=== PATIENT | female | born 1990 | race Two or more races ===

== ENCOUNTER 2019-09-13 13:26 | Emergency (ER) | payer OTHER ==
[~2019-09-13] VITALS: Ht 162.6 cm; Wt 56.2 kg
[2019-09-13 13:49] VITALS: BP 116/57
--- NOTE | 2019-09-13 13:54 | NUR ---
ABD PAIN X 2 DAYS + NAUSEA -DIARRHEA. PT AAOX4, VSS. RR EVEN & UNLABORED. DENIES CP, SOB, DIZZINESS @ THIS TIME. AWAITING EVAL BY LORENZO/PA. WILL CONT TO MONITOR.
== END 2019-09-13 14:53 | disposition home or self-care (01) ==
LOC: ER 13:32
DX: M79.18 Myalgia, other site (principal); M79.652 Pain in left thigh; G89.29 Other chronic pain; Z93.3 Colostomy status; Z85.038 Personal history of other malignant neoplasm of large intestine; Z98.890 Other specified postprocedural states; Z88.6 Allergy status to analgesic agent

== ENCOUNTER 2020-05-07 16:41 | Emergency (ER) | payer OTHER ==
[~2020-05-07] VITALS: Ht 160 cm; Wt 56.2 kg
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
--- NOTE | 2020-05-07 16:55 | NUR ---
DR CASTILLO AT BEDSIDE FOR EVAL.
[2020-05-07] MEDS ORDERED: ONDANSETRON HCL/PF 4 MG/2 ML VIAL IVP ONE (17:00)
[2020-05-07] MEDS ORDERED: MORPHINE SULFATE INJ 2 MG/ML DISP.SYRIN IV ONE (17:00)
[2020-05-07] MEDS ORDERED: IV NS 0.9% 1,000 ML BAG IV ONE (17:00)
--- NOTE | 2020-05-07 17:10 | NUR ---
IV LINE STARTED BLOOD DRAWN AND SENT TO LAB.
[2020-05-07 17:18] LABS: EOSINOPHILS % (AUTO) 1.5 % (0.0-6.0); HEMATOCRIT 25 % (33-45); HEMOGLOBIN 8.2 g/dL (11.5-14.8); LYMPHOCYTES # (AUTO) 1.3 /CMM (0.8-4.8); LYMPHOCYTES % (AUTO) 29.4 % (20.0-44.0); MEAN CORPUSCULAR HGB CONC 33 g/dl (31.0-36.0); MEAN CORPUSCULAR VOLUME 83 fL (82-100); MONOCYTES # (AUTO) 0.3 /CMM (0.1-1.30); MONOCYTES % (AUTO) 6.7 % (2.0-12.0); NEUTROPHILS # (AUTO) 2.7 /CMM (1.8-8.9); NEUTROPHILS % (AUTO) 61.4 % (43.0-81.0); PLATELET COUNT (AUTO) 419 /CMM (150-450); RED BLOOD CELL COUNT(AUTO) 3.02 MIL/uL (4.0-5.2); WHITE BLOOD COUNT (AUTO) 4.3 K/uL (4.3-11.0)
[2020-05-07] MEDS ORDERED: ONDANSETRON HCL/PF 4 MG/2 ML VIAL ONE (17:18)
[2020-05-07] MEDS ORDERED: MORPHINE SULFATE INJ 2 MG/ML DISP.SYRIN ONE (17:18)
[2020-05-07 17:46] LABS: APPEARANCE,URINE Clear (CLEAR); BILIRUBIN,URINE Negative (NEGATIVE); BLOOD, URINE Large Ery/uL (NEGATIVE); COLOR,URINE Light yellow (YELLOW); KETONES,URINE Negative (NEGATIVE); LEUKOCYTE ESTERASE ,URINE Small (NEGATIVE); NITRITE, URINE Negative (NEGATIVE); PH,URINE 6.5 (5.0-8.0); PROTEIN,URINE Negative (NEGATIVE); UGLUCOSE Negative (NEGATIVE); UROBILINOGEN,URINE 0.2 EU/dL (0.2)
[2020-05-07 18:04] LABS: SQUAMOUS EPITHELIAL CELL,UR Many /HPF (None Seen)
[2020-05-07 18:05] LABS: BACTERIA,URINE Few /HPF (None Seen)
[2020-05-07 18:05] LABS: CREATININE 0.7 mg/dL (0.6-1.3); POTASSIUM 4.2 mmol/L (3.5-5.1)
[2020-05-07 18:14] LABS: ALBUMIN 3.3 g/dL (3.4-5.0); BILIRUBIN,TOTAL 0.2 mg/dL (0.2-1.0); TOTAL PROTEIN, SERUM 8.1 g/dL (6.4-8.2)
[2020-05-07] MEDS ORDERED: CEFTRIAXONE 1 G in IV D5W 50 ML IV ONE (18:30)
[2020-05-07] MEDS ORDERED: CEFTRIAXONE 1GM BAG (ER ONLY) 50 ML IV ONE (18:34)
[2020-05-07] MEDS ORDERED: IV NS 0.9% 1,000 ML IV ONE (19:00)
--- NOTE | 2020-05-07 19:30 | NUR ---
REPORT GIVEN TO COKE DRAWER HAND NURSE KALEB FOR LARS.
--- NOTE | 2020-05-07 19:31 | NUR ---
REPORT RECEIVED FROM MENA WHITLEY FOR LARS
[2020-05-07 19:52] VITALS: BP 101/64
--- NOTE | 2020-05-07 19:52 | NUR ---
Patient discharged to home in stable condition. Written and verbal after care instructions given. Patient verbalizes understanding of instruction.
== END 2020-05-07 19:53 | disposition home or self-care (01) ==
LOC: ER 16:45
DX: N39.0 Urinary tract infection, site not specified (principal); E86.0 Dehydration; D64.9 Anemia, unspecified; Z98.890 Other specified postprocedural states; Z90.89 Acquired absence of other organs; Z90.49 Acquired absence of other specified parts of digestive tract; Z88.6 Allergy status to analgesic agent
CPT/HCPCS: 36415; 80048; 80076; 81001; 83690; 84702; 85025; 96361; 96365; 96375; 99284; J0696 ×2; J2270; J2405; J7030 ×2; J7060; 81000-TC; 87086-TC

== ENCOUNTER 2020-11-28 11:41 | Emergency (ER) | payer OTHER ==
[~2020-11-28] VITALS: Ht 162.6 cm; Wt 54.4 kg
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
--- NOTE | 2020-11-28 12:43 | NUR ---
DR JONES AT BEDSIDE FOR EVAL
[2020-11-28] MEDS ORDERED: ONDANSETRON HCL/PF 4 MG/2 ML VIAL ONE (13:28)
--- NOTE | 2020-11-28 14:05 | NUR ---
patient not able to provide urine sample. made MD aware. offered straight catheter, patient refused
[2020-11-28] MEDS: IV NS 0.9% 1,000 ML BAG IV ONE (14:06)
[2020-11-28] MEDS: ONDANSETRON HCL/PF 4 MG/2 ML VIAL IVP ONE (14:07)
[2020-11-28 14:09] LABS: BASOPHILS # (AUTO) 0.1 /CMM (0.0-0.2); EOSINOPHILS % (AUTO) 0.3 % (0.0-6.0); HEMATOCRIT 30 % (33-45); HEMOGLOBIN 9.4 g/dL (11.5-14.8); LYMPHOCYTES # (AUTO) 1.5 /CMM (0.8-4.8); LYMPHOCYTES % (AUTO) 15.4 % (20.0-44.0); MEAN CORPUSCULAR HGB CONC 32 g/dl (31.0-36.0); MEAN CORPUSCULAR VOLUME 82 fL (82-100); MONOCYTES # (AUTO) 0.5 /CMM (0.1-1.30); MONOCYTES % (AUTO) 4.8 % (2.0-12.0); NEUTROPHILS # (AUTO) 7.4 /CMM (1.8-8.9); NEUTROPHILS % (AUTO) 78.5 % (43.0-81.0); PLATELET COUNT (AUTO) 528 /CMM (150-450); RED BLOOD CELL COUNT(AUTO) 3.65 MIL/uL (4.0-5.2); WHITE BLOOD COUNT (AUTO) 9.5 K/uL (4.3-11.0)
[2020-11-28] MEDS ORDERED: MORPHINE SULFATE INJ 4 MG/ML DISP.SYRIN ONE ×2 (14:10→15:54)
[2020-11-28] MEDS ORDERED: IOHEXOL-300 100 ML VIAL IV ONE (14:15)
[2020-11-28] MEDS ORDERED: IV NS 0.9% 250 ML IV ONE (14:15)
[2020-11-28] MEDS: MORPHINE SULFATE INJ 2 MG/ML DISP.SYRIN IV ONE (14:16)
[2020-11-28 14:25] LABS: CALCIUM, SERUM 9.6 mg/dL (8.5-10.1); CREATININE 1.1 mg/dL (0.6-1.3)
[2020-11-28 14:30] LABS: ALBUMIN 4.1 g/dL (3.4-5.0); BILIRUBIN,DIRECT 0.2 mg/dL (0.0-0.2); BILIRUBIN,TOTAL 0.8 mg/dL (0.2-1.0); TOTAL PROTEIN, SERUM 9.4 g/dL (6.4-8.2)
[2020-11-28] MEDS: MORPHINE SULFATE INJ 10 MG/ML DISP.SYRIN IV ONE (16:02)
[2020-11-28] MEDS ORDERED: diphenhydrAMINE HCL 25 MG CAPSULE ONE (16:05)
[2020-11-28] MEDS: diphenhydrAMINE HCL 25 MG CAPSULE PO ONE (16:07)
--- NOTE | 2020-11-28 16:09 | NUR ---
IV removed. Catheter intact and site benign. Pressure and 4x4 applied to site. No bleeding noted.Patient discharged to home in stable condition. Written and verbal after care instructions given. Patient verbalizes understanding of instruction.
[2020-11-28 16:36] VITALS: BP 110/67
== END 2020-11-28 16:21 | disposition home or self-care (01) ==
LOC: ER 11:47
DX: R10.84 Generalized abdominal pain (principal); R10.10 Upper abdominal pain, unspecified; K92.0 Hematemesis; D64.9 Anemia, unspecified; Z98.890 Other specified postprocedural states; Z88.6 Allergy status to analgesic agent; Z85.038 Personal history of other malignant neoplasm of large intestine; Y08.89XA Assault by other specified means, initial encounter; Y93.89 Activity, other specified; Y92.89 Other specified places as the place of occurrence of the external cause; Y99.8 Other external cause status
CPT/HCPCS: 36415; 71045; 71260; 74177; 80048; 80076; 80320; 83690; 85025; 93005; 96361; 96374; 96375; 96376; 99285; J2270 ×2; J2405; J7030; J7050; Q0163; Q9967; G0480

== ENCOUNTER 2021-09-28 14:38 | Inpatient (IN) | payer OTHER ==
[~2021-09-28] VITALS: Ht 162.6 cm; Wt 52.4 kg
[2021-09-28] MEDS ORDERED: ONDANSETRON HCL/PF 4 MG/2 ML VIAL ONE ×2 (14:51→15:07)
[2021-09-28] MEDS ORDERED: PANTOPRAZOLE 40 MG VIAL ONE ×2 (14:51→15:07)
[2021-09-28] MEDS ORDERED: PANTOPRAZOLE 40 MG VIAL IV ONE (15:00)
[2021-09-28] MEDS ORDERED: IV NS 0.9% 1,000 ML BAG IV ONE (15:00)
[2021-09-28] MEDS ORDERED: ONDANSETRON HCL/PF 4 MG/2 ML VIAL IVP ONE (15:00)
--- NOTE | 2021-09-28 15:03 | NUR ---
Line started on L ej g 20, blood drawn from line and sent to lab
[2021-09-28 15:12] LABS: BASOPHILS % (AUTO) 0.7 % (0.0-2.0); EOSINOPHILS % (AUTO) 1.2 % (0.0-6.0); HEMATOCRIT 33 % (33-45); HEMOGLOBIN 10.8 g/dL (11.5-14.8); LYMPHOCYTES # (AUTO) 2.1 K/uL (0.8-4.8); LYMPHOCYTES % (AUTO) 36.6 % (20.0-44.0); MEAN CORPUSCULAR HGB CONC 33 g/dl (31.0-36.0); MEAN CORPUSCULAR VOLUME 91 fL (82-100); MONOCYTES # (AUTO) 0.4 K/uL (0.1-1.30); MONOCYTES % (AUTO) 6.6 % (2.0-12.0); NEUTROPHILS # (AUTO) 3.1 K/uL (1.8-8.9); NEUTROPHILS % (AUTO) 54.9 % (43.0-81.0); PLATELET COUNT (AUTO) 269 K/uL (150-450); RED BLOOD CELL COUNT(AUTO) 3.57 MIL/uL (4.0-5.2); WHITE BLOOD COUNT (AUTO) 5.7 K/uL (4.3-11.0)
[2021-09-28 15:30] LABS: ALBUMIN 3.3 g/dL (3.4-5.0); BILIRUBIN,DIRECT 0.1 mg/dL (0.0-0.2); BILIRUBIN,TOTAL 0.3 mg/dL (0.2-1.0); CALCIUM, SERUM 8.4 mg/dL (8.5-10.1); CREATININE 1.1 mg/dL (0.6-1.3); TOTAL PROTEIN, SERUM 7.6 g/dL (6.4-8.2)
[2021-09-28] MEDS ORDERED: MORPHINE SULFATE INJ 2 MG/ML DISP.SYRIN IV ONE (15:30)
[2021-09-28 15:31] LABS: BILIRUBIN,URINE SMALL (NEGATIVE); COLOR,URINE YELLOW (YELLOW); LEUKOCYTE ESTERASE ,URINE NEGATIVE (NEGATIVE); NITRITE, URINE NEGATIVE (NEGATIVE); PROTEIN,URINE 30 mg/dl (NEGATIVE); UGLUCOSE NEGATIVE (NEGATIVE); UROBILINOGEN,URINE 0.2 EU/dL (0.2)
[2021-09-28 15:33] LABS: POTASSIUM 2.7 mmol/L (3.5-5.1)
[2021-09-28] MEDS ORDERED: MORPHINE SULFATE INJ 4 MG/ML DISP.SYRIN ONE (15:33)
[2021-09-28] MEDS ORDERED: POTASSIUM CL. PREMIX PERIPHER. 200 ML ONE (15:39)
[2021-09-28] MEDS ORDERED: diphenhydrAMINE HCL 50 MG/ML VIAL ONE (15:41)
[2021-09-28 15:45] LABS: BACTERIA,URINE None seen /HPF (None Seen); RBC,URINE 21-50 /HPF (0-2)
[2021-09-28] MEDS: POTASSIUM CL. PREMIX PERIPHER. 50 ML IV SCH ×4 (15:50→20:00)
[2021-09-28] MEDS ORDERED: IOHEXOL-300 100 ML VIAL IV ONE (15:55)
[2021-09-28] MEDS ORDERED: CT SWABBABLE VALVE TRANS SET 1 EA INFUS.SET MC ONE (15:55)
[2021-09-28] MEDS ORDERED: IV NS 0.9% 250 ML IV ONE (15:55)
[2021-09-28] MEDS ORDERED: diphenhydrAMINE HCL 50 MG/ML VIAL IV ONE (16:00)
[2021-09-28] MEDS ORDERED: OXYC1TAB8 MT (16:43)
[2021-09-28] MEDS ORDERED: PANT40TA2 PO (16:43)
[2021-09-28] MEDS ORDERED: SERT50TA12 PO (16:43)
[2021-09-28] MEDS ORDERED: HYDR4TAB57 PO (16:43)
[2021-09-28] MEDS ORDERED: ALPR0.5T8 MT (16:43)
--- NOTE | 2021-09-28 16:43 | NUR ---
covid swab done and sent to the lab
--- NOTE | 2021-09-28 16:59 | NUR ---
NOEL MEDRANO CALLED [phone] FAX IS [phone]
[2021-09-28] MEDS ORDERED: HYDROMORPHONE 1 MG/1 ML DISP.SYRIN IV ONE ×2 (17:00→20:00)
[2021-09-28] MEDS ORDERED: HYDROMORPHONE 1 MG/1 ML DISP.SYRIN ONE ×2 (17:10→19:52)
[2021-09-28 18:10] LABS: OCCULT BLOOD STOOL POSITIVE (NEGATIVE)
--- NOTE | 2021-09-28 18:11 | NUR ---
FAXED CLINICALS TO [facility] [phone]
--- NOTE | 2021-09-28 19:03 | NUR ---
MA[facility] CM WILL CALL US IN 30 MINS TO OFFER A BED OR AUTH TO ADMIT.
--- NOTE | 2021-09-28 19:12 | NUR ---
CALLED JENNY FOR READ.
--- NOTE | 2021-09-28 20:47 | NUR ---
recieved bed 322-1
--- NOTE | 2021-09-28 20:55 | NUR ---
REPORT GIVEN TO MENA LEMUS
--- NOTE | 2021-09-28 21:53 | NUR ---
PATIENT TRANSFERRED UNDER ACLS
[2021-09-28] MEDS ORDERED: ZOLPIDEM TARTRATE 5 MG TABLET PO PRN ×2 (22:00→22:30)
[2021-09-28] MEDS ORDERED: oxyCODONE/APAP (5/325 MG) 1 UDTAB TABLET PO PRN ×2 (22:00→22:30)
[2021-09-28] MEDS ORDERED: Potassium Chloride 20 MEQ in IV D5/ 0.9% NACL 1,000 ML IV PRN (22:00)
[2021-09-28] MEDS ORDERED: ONDANSETRON HCL/PF 4 MG/2 ML VIAL IV PRN ×2 (22:00→22:30)
[2021-09-28] MEDS ORDERED: POTASSIUM CHLORIDE 20 MEQ TAB.PRT.SR PO ONE ×2 (22:00→22:30)
[2021-09-28] MEDS ORDERED: MORPHINE SULFATE IR 15 MG TABLET PO PRN (22:00)
[2021-09-28] MEDS ORDERED: ACETAMINOPHEN 325 MG TABLET PO PRN ×2 (22:00→22:30)
[2021-09-28 22:30] VITALS: BP 93/46
[2021-09-28] MEDS ORDERED: Potassium Chloride 20 MEQ in IV D5/ 0.9% NACL 1,000 ML IV SCH (22:30)
[2021-09-28 23:00] VITALS: BP 93/46
[2021-09-28] MEDS ORDERED: IV PREMIX D5 NS + KCL 1,000 ML IV PRN (23:00)
[2021-09-28] MEDS: HYDROMORPHONE HCL 2 MG TABLET PO PRN (23:10)
[2021-09-28] MEDS ORDERED: IV PREMIX D5 1/2NS + KCL 1,000 ML IV PRN (23:45)
[2021-09-29] VITALS: BP 81/54
[2021-09-29] MEDS ORDERED: Potassium Chloride 20 MEQ in IV D5/0.45 NACL 1,000 ML IV SCH
[2021-09-29] MEDS ORDERED: IV PREMIX D5 1/2NS + KCL 1,000 ML IV ONE (00:54)
--- NOTE | 2021-09-29 05:04 | NUR ---
CLOSING NOTES: RECEIVED PATIENT AT 22:45 FROM THE ER MD ORDERED MORPHINE 4 MG PO FOR PAIN AND SHE STATED "MORPHINE DOESN'T WORK, CALL MY DOCTOR AND GET GET THE MEDICINE CHANGED TO DILAUDID 4 MG "I TAKE IT q 6 HOURS PO AT HOME" CALL MADE TO MD CELESTIN AND RECEIVED THE ORDER FOR DILAUDID 4 MG Q 6 HOURS PO. FIRST DOSE GIVEN AT 2300 FOR ABD PAIN. NOTED SHE TAKES CARE OF HER ILEOSTOMY. AT 5AM SHE WANTED ME TO CALL THE MD SHE WANTS DILAUDID IV EXPLAINED TO HER THE MD ORDERED MEDICINE TO GET HER THRU THE NIGHT AND DID ORDER PO NO IV SHE STARTED TO ESCALATE IN HER VOICE AND MANNERISMS WITH ANGER. INSTRUCTED I CAN GIVE HER DILAUDID TONY CHARGE NURSE SPOKE TO THE PATIENT REGARDING HER REQUEST FOR IV DILAUDID AT 5:18 SPOKE TO THE PATIENT AND SHE IS WILLING TO TAKE THE PO DILAUDID 4 MG
[2021-09-29] MEDS: HYDROMORPHONE HCL 2 MG TABLET PO PRN (05:20)
[2021-09-29 06:19] LABS: BASOPHILS % (AUTO) 0.5 % (0.0-2.0); EOSINOPHILS % (AUTO) 2.1 % (0.0-6.0); HEMATOCRIT 33 % (33-45); HEMOGLOBIN 10.9 g/dL (11.5-14.8); LYMPHOCYTES # (AUTO) 2.3 K/uL (0.8-4.8); LYMPHOCYTES % (AUTO) 54.3 % (20.0-44.0); MEAN CORPUSCULAR HGB CONC 33 g/dl (31.0-36.0); MEAN CORPUSCULAR VOLUME 93 fL (82-100); MONOCYTES # (AUTO) 0.4 K/uL (0.1-1.30); MONOCYTES % (AUTO) 9.3 % (2.0-12.0); NEUTROPHILS # (AUTO) 1.4 K/uL (1.8-8.9); NEUTROPHILS % (AUTO) 33.8 % (43.0-81.0); PLATELET COUNT (AUTO) 238 K/uL (150-450); RED BLOOD CELL COUNT(AUTO) 3.56 MIL/uL (4.0-5.2); WHITE BLOOD COUNT (AUTO) 4.2 K/uL (4.3-11.0)
[2021-09-29 06:54] LABS: CALCIUM, SERUM 7.9 mg/dL (8.5-10.1); CREATININE 0.9 mg/dL (0.6-1.3); POTASSIUM 3.2 mmol/L (3.5-5.1)
[2021-09-29] MEDS ORDERED: PANTOPRAZOLE 40 MG TABLET.DR PO SCH (07:30)
== END 2021-09-29 06:20 | disposition left against medical advice (07) | DRG 253 ==
LOC: ER 14:38 → MED 21:17 → TELE 22:08
PROVIDERS: ADMIT Internal Medicine; ATTEND Internal Medicine
DX: K92.2 Gastrointestinal hemorrhage, unspecified (principal); D64.9 Anemia, unspecified; E87.6 Hypokalemia; G89.29 Other chronic pain; E86.0 Dehydration; K86.1 Other chronic pancreatitis; Z91.19 Patient's noncompliance with other medical treatment and regimen; Z85.038 Personal history of other malignant neoplasm of large intestine; Z20.822 Contact with and (suspected) exposure to COVID-19; Z93.2 Ileostomy status
CPT/HCPCS: 36415; 71045-TC; 80048-TC; 80076-TC; 81001; 82272-TC; 83690-TC; 85025-TC; 85610-TC; 86850-TC; 87081-TC; C9113; C9803; G0378; G0480; J1170; J1200; J2270; J2405; J3480; J3490; J7030; J7050; Q9967

== ENCOUNTER 2022-03-03 20:31 | Emergency (ER) | payer OTHER ==
[~2022-03-03] VITALS: Ht 162.6 cm; Wt 56.7 kg
[~2022-03-03 20:31] MED LIST: ALPR0.5T8 MT; HYDR4TAB57 PO; OXYC1TAB8 MT; PANT40TA2 PO; SERT50TA12 PO
--- NOTE | 2022-03-03 20:38 | NUR ---
PT BIBRA 881 C/O ABD PAIN X3 DAYS. +NAUSEA, VOMITTING, WEAKNESS. PT A/OX4. TOLERATING R/A WELL WITH NO SOB. CONNECTED PT TO POX AND MONITOR
--- NOTE | 2022-03-03 20:39 | NUR ---
PT COMING FROM HOME AND CALLED [phone]
[2022-03-03] MEDS ORDERED: diphenhydrAMINE HCL 50 MG/ML VIAL ONE (20:51)
[2022-03-03] MEDS ORDERED: HYDROMORPHONE 1 MG/1 ML DISP.SYRIN ONE ×3 (20:51→22:29)
[2022-03-03] MEDS ORDERED: ONDANSETRON HCL/PF 4 MG/2 ML VIAL ONE (20:51)
[2022-03-03] MEDS: ONDANSETRON HCL/PF 4 MG/2 ML VIAL IVP ONE (21:05)
[2022-03-03] MEDS: HYDROMORPHONE INJ 2 MG/ML DISP.SYRIN IV ONE ×2 (21:05→22:33)
[2022-03-03] MEDS: diphenhydrAMINE HCL 50 MG/ML VIAL IV ONE (21:05)
[2022-03-03] MEDS: IV NS 0.9% 1,000 ML BAG IV ONE (21:05)
[2022-03-03 21:10] LABS: BASOPHILS # (AUTO) 0.1 K/uL (0.0-0.2); BASOPHILS % (AUTO) 1.1 % (0.0-2.0); EOSINOPHILS % (AUTO) 1.1 % (0.0-6.0); HEMATOCRIT 28 % (33-45); HEMOGLOBIN 8.8 g/dL (11.5-14.8); LYMPHOCYTES # (AUTO) 1.3 K/uL (0.8-4.8); MEAN CORPUSCULAR HGB CONC 32 g/dl (31.0-36.0); MEAN CORPUSCULAR VOLUME 84 fL (82-100); MONOCYTES # (AUTO) 0.4 K/uL (0.1-1.30); MONOCYTES % (AUTO) 9.2 % (2.0-12.0); NEUTROPHILS # (AUTO) 2.8 K/uL (1.8-8.9); NEUTROPHILS % (AUTO) 60.6 % (43.0-81.0); PLATELET COUNT (AUTO) 393 K/uL (150-450); RED BLOOD CELL COUNT(AUTO) 3.31 MIL/uL (4.0-5.2); WHITE BLOOD COUNT (AUTO) 4.7 K/uL (4.3-11.0)
--- NOTE | 2022-03-03 21:13 | NUR ---
IV LINE ESTABLISHED 20G RAC. BLOOD DRAWN AND SENT TO LAB. PT UNABLE TO PROVIDE URINE SPECIMEN AT THIS TIME.
[2022-03-03] MEDS: HYDROMORPHONE 1 MG/1 ML DISP.SYRIN IV ONE (21:50)
--- NOTE | 2022-03-03 22:38 | NUR ---
covid swab collected and sent to lab
[2022-03-03 23:14] LABS: BILIRUBIN,URINE NEGATIVE (NEGATIVE); COLOR,URINE YELLOW (YELLOW); LEUKOCYTE ESTERASE ,URINE NEGATIVE (NEGATIVE); NITRITE, URINE NEGATIVE (NEGATIVE); PH,URINE 6.5 (5.0-8.0); PROTEIN,URINE NEGATIVE (NEGATIVE); UGLUCOSE NEGATIVE (NEGATIVE); UROBILINOGEN,URINE 0.2 EU/dL (0.2)
[2022-03-03 23:29] LABS: BACTERIA,URINE Rare /HPF (None Seen); SQUAMOUS EPITHELIAL CELL,UR Few /HPF (None Seen); WBC,URINE NONE SEEN /HPF (0-3)
[2022-03-03 23:35] LABS: ALBUMIN 3.5 g/dL (3.4-5.0); BILIRUBIN,DIRECT 0.1 mg/dL (0.0-0.2); BILIRUBIN,TOTAL 0.3 mg/dL (0.2-1.0); CALCIUM, SERUM 8.8 mg/dL (8.5-10.1); POTASSIUM 4.2 mmol/L (3.5-5.1); TOTAL PROTEIN, SERUM 7.6 g/dL (6.4-8.2)
--- NOTE | 2022-03-03 23:37 | NUR ---
CALLED JENNY FOR IMAGING READ
--- NOTE | 2022-03-04 00:17 | NUR ---
JODI DERAS CM WORKING ON PT'S CASE [phone] WILL NOTIFY IF PT IS ACCEPTED TO [facility].
[2022-03-04] MEDS ORDERED: FENTANYL PF 100MCG/2ML AMPUL ONE (00:35)
[2022-03-04] MEDS: FENTANYL PF 100MCG/2ML AMPUL IV ONE (00:40)
[2022-03-04] MEDS ORDERED: HYDROMORPHONE 1 MG/1 ML DISP.SYRIN ONE (02:14)
[2022-03-04] MEDS: HYDROMORPHONE 1 MG/1 ML DISP.SYRIN IV ONE (02:20)
--- NOTE | 2022-03-04 02:27 | NUR ---
DR BURNS ON THE PHONE WITH DR BRAYAN ZAPATA: [phone]
--- NOTE | 2022-03-04 02:47 | NUR ---
Patient does not wish to proceed with medical care recommended by Dr. Mcrae. Patient given information related to possible complications, up to and including , which could occur as a result of leaving the hospital at this time. Patient verbalizes understanding of risks involved due to leaving against medical advice. Patient has signed AMA form. IV line removed and PT ambulatory with steady gait.
[2022-03-04 02:54] VITALS: BP 99/57
== END 2022-03-04 02:55 | disposition left against medical advice (07) ==
LOC: ER 20:32
DX: R10.84 Generalized abdominal pain (principal); Z85.038 Personal history of other malignant neoplasm of large intestine; Z85.07 Personal history of malignant neoplasm of pancreas; Z93.3 Colostomy status; Z88.6 Allergy status to analgesic agent; Z53.29 Procedure and treatment not carried out because of patient's decision for other reasons; D64.9 Anemia, unspecified; Z98.890 Other specified postprocedural states
CPT/HCPCS: 36415; 74176; 80048; 80076; 81001; 83690; 84703; 85025; 87426; 96361; 96374; 96375 ×2; 96376 ×2; 99285; C9803; J1170 ×4; J1200; J2405; J3010; J7030

== ENCOUNTER 2022-03-26 23:59 | Emergency (ER) | payer OTHER ==
[~2022-03-26] VITALS: Ht 180.3 cm; Wt 54.4 kg
--- NOTE | 2022-03-27 00:05 | NUR ---
BIBRA FROM HOME C/O GEN ABD PAIN RADIATING TO L FLANK X3 DAYS HX OF COLON CANCER. ON HOSPICE. PATIENT ALERT AND ORIENTED X3. AMBULATORY WITH NON LABORED BREATHING, UNABLE TO PROVIDE URINE AT THIS TIME.
[2022-03-27] MEDS ORDERED: ONDANSETRON HCL/PF 4 MG/2 ML VIAL ONE (00:17)
[2022-03-27] MEDS ORDERED: MORPHINE SULFATE INJ 4 MG/ML DISP.SYRIN ONE (00:18)
[2022-03-27 00:33] LABS: BASOPHILS % (AUTO) 0.6 % (0.0-2.0); EOSINOPHILS % (AUTO) 1.8 % (0.0-6.0); HEMATOCRIT 25 % (33-45); HEMOGLOBIN 7.8 g/dL (11.5-14.8); LYMPHOCYTES # (AUTO) 2.2 K/uL (0.8-4.8); MEAN CORPUSCULAR HGB CONC 31 g/dl (31.0-36.0); MEAN CORPUSCULAR VOLUME 84 fL (82-100); MONOCYTES # (AUTO) 0.4 K/uL (0.1-1.30); MONOCYTES % (AUTO) 7.6 % (2.0-12.0); NEUTROPHILS # (AUTO) 2.6 K/uL (1.8-8.9); PLATELET COUNT (AUTO) 258 K/uL (150-450); RED BLOOD CELL COUNT(AUTO) 3.01 MIL/uL (4.0-5.2); WHITE BLOOD COUNT (AUTO) 5.3 K/uL (4.3-11.0)
--- NOTE | 2022-03-27 00:35 | NUR ---
BLOOD COLLECTED AND SENT TO LAB
[2022-03-27] MEDS: MORPHINE SULFATE INJ 2 MG/ML DISP.SYRIN IV ONE (00:37)
[2022-03-27] MEDS: ONDANSETRON HCL/PF 4 MG/2 ML VIAL IVP ONE (00:37)
[2022-03-27] MEDS: IV NS 0.9% 500 ML BAG IV ONE (00:37)
[2022-03-27 00:44] LABS: CALCIUM, SERUM 8.2 mg/dL (8.5-10.1); CREATININE 1.1 mg/dL (0.6-1.3); POTASSIUM 3.9 mmol/L (3.5-5.1)
[2022-03-27 00:53] LABS: ALBUMIN 2.8 g/dL (3.4-5.0); BILIRUBIN,DIRECT 0.1 mg/dL (0.0-0.2); BILIRUBIN,TOTAL 0.2 mg/dL (0.2-1.0); TOTAL PROTEIN, SERUM 6.7 g/dL (6.4-8.2)
--- NOTE | 2022-03-27 01:06 | NUR ---
Patient does not wish to proceed with medical care recommended by Dr. Mccormick. Patient given information related to possible complications, up to and including , which could occur as a result of leaving the hospital at this time. Patient verbalizes understanding of risks involved due to leaving against medical advice. Patient refused to sign AMA form.
--- NOTE | 2022-03-27 01:06 | NUR ---
IV removed. Catheter intact and site benign. Pressure and 4x4 applied to site. No bleeding noted.
[2022-03-27 01:07] VITALS: BP 110/71
== END 2022-03-27 01:51 | disposition left against medical advice (07) ==
LOC: ER 03-27 00:06
DX: G89.29 Other chronic pain (principal); R10.84 Generalized abdominal pain; R11.2 Nausea with vomiting, unspecified; D64.9 Anemia, unspecified; Z86.69 Personal history of other diseases of the nervous system and sense organs; Z87.19 Personal history of other diseases of the digestive system; Z85.038 Personal history of other malignant neoplasm of large intestine; Z93.2 Ileostomy status; Z88.8 Allergy status to other drugs, medicaments and biological substances; Z79.899 Other long term (current) drug therapy
CPT/HCPCS: 36415; 80048; 80076; 83690; 85025; 85730; 96374; 96375; 99284; J2270; J2405; J7040; J7030